=== PATIENT | female | born 1995 | race Asian ===

== ENCOUNTER 2017-12-02 12:55 | Emergency (ER) | payer BC ==
[~2017-12-02] VITALS: Ht 157.5 cm; Wt 77.3 kg
[2017-12-02] MEDS ORDERED: METO50 PO (13:00)
[2017-12-02 14:32] VITALS: BP 138/70
== END 2017-12-02 14:54 | disposition home or self-care (01) ==
LOC: EMS 12:56
DX: F41.9 Anxiety disorder, unspecified (principal)
CPT/HCPCS: 93005; 99283